=== PATIENT | male | born 1970 | race Two or more races ===

== ENCOUNTER 2021-09-15 01:31 | Emergency (ER) | payer MEDICAID, OTHER ==
[~2021-09-15] VITALS: Ht 167.6 cm; Wt 65.3 kg
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
[2021-09-15] MEDS ORDERED: HYDROCODONE/APAP 5/325MG TABLET ONE (02:57)
[2021-09-15] MEDS ORDERED: LIDOCAINE 1%-EPI 1:100,000 20 ML VIAL ONE (02:57)
[2021-09-15] MEDS ORDERED: SODIUM BICARBONATE 5 ML VIAL ONE (02:57)
[2021-09-15] MEDS ORDERED: CEFTRIAXONE 500 MG VIAL ONE (02:57)
[2021-09-15] MEDS ORDERED: TDAP [DIPH/PERTUSSIS/TET] 0.5 ML VIAL IM ONE ×2 (02:58→03:00)
[2021-09-15] MEDS ORDERED: ONDANSETRON 4 MG TAB.RAPDIS ONE (02:58)
[2021-09-15] MEDS ORDERED: LIDOCAINE 1%-EPI 1:100,000 20 ML VIAL TP ONE (03:00)
[2021-09-15] MEDS ORDERED: CEFTRIAXONE 1 G VIAL IM ONE (03:00)
[2021-09-15] MEDS ORDERED: ONDANSETRON 4 MG TAB.RAPDIS SL ONE (03:00)
[2021-09-15] MEDS ORDERED: HYDROCODONE/APAP 5/325MG TABLET PO ONE (03:00)
[2021-09-15] MEDS ORDERED: SODIUM BICARBONATE 5 ML VIAL MC ONE (03:00)
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
[2021-09-15] MEDS ORDERED: CEPH500T PO (04:50)
[2021-09-15] MEDS ORDERED: HYDR-4209 PO (04:50)
--- NOTE | 2021-09-15 05:03 | NUR ---
PATIENT IS MEDICALLY STABLE FOR D/C PER MD. Patient discharged to home in stable condition. Rx and Written and verbal after care instructions given. Patient verbalizes understanding of instruction.
[2021-09-15 05:04] VITALS: BP 119/78
== END 2021-09-15 05:04 | disposition home or self-care (01) ==
LOC: ER 01:32
DX: S02.2XXA Fracture of nasal bones, initial encounter for closed fracture (principal); S01.81XA Laceration without foreign body of other part of head, initial encounter; Y04.0XXA Assault by unarmed brawl or fight, initial encounter; Y93.89 Activity, other specified; Y92.89 Other specified places as the place of occurrence of the external cause; Y99.8 Other external cause status
CPT/HCPCS: 12013; 70450; 70486; 96372; 99284; J0696; J3490 ×2; Q0162; 90715